=== PATIENT | male | born 1950 | race Caucasian/White ===

== ENCOUNTER 2021-01-29 01:52 | Emergency (ER) | payer OTHER, MEDICARE ==
[2021-01-29] MEDS: Nitroglycerin 0.4 MG Tab.SL SL PRN ×3 (01:55→02:05)
[2021-01-29] MEDS ORDERED: Furosemide 40 MG/4 ML VIAL IVPUSH ONE (01:55)
--- NOTE | 2021-01-29 01:56 | EDM.PDOC ---
ED HPI GENERAL MEDICAL PROBLEM - General Chief Complaint: Respiratory Problem Stated Complaint: CHEST PAIN Time Seen by Provider: 01/29/21 01:54 Source of Information: Reports: Patient History Limitations: Reports: No Limitations - History of Present Illness INITIAL COMMENTS - FREE TEXT/NARRATIVE: Patient is a 70-year-old male who presents today in respiratory distress. Patient states that he cannot lay flat and when he does not be becomes worse. Patient denies any chest pain. Patient denies any increased fluid intake or lower extremity swelling. - Related Data Allergies Allergy/AdvReac Type Severity Reaction Status Date / Time clozapine Allergy Cannot Verified 01/29/21 02:17 Remember mirtazapine Allergy Cannot Verified 01/29/21 02:17 Remember Penicillins Allergy Anaphylactic Verified 01/29/21 02:17 Shock pregabalin Allergy Cannot Verified 01/29/21 02:17 Remember sunflower oil Allergy Anaphylactic Verified 01/29/21 02:17 Shock methadone AdvReac Irritabilit Verified 01/29/21 02:17 y zolpidem AdvReac Hallucinati Verified 01/29/21 02:17 ons Home Meds: Home Meds Allopurinol [Zyloprim] 100 mg PO DAILY 06/18/17 [History] Cholecalciferol (Vitamin D3) [Vitamin D3] 1,000 unit PO DAILY 06/18/17 [History] Dextran 70/Hypromellose [Artificial Tears] 1 drop OP ASDIRECTED 06/18/17 [History] Furosemide [Lasix] 20 mg PO DAILY 06/18/17 [History] Insulin Aspart [NovoLOG] 1 dose SQ TID 06/18/17 [History] Insulin Glarg,Human.Rec.Analog [LantUS Solostar] 44 units SUBCUT BID 06/18/17 [History] Warfarin [Coumadin] 5 mg PO DAILY 06/18/17 [History] Magnesium Oxide 1 tab PO DAILY 08/06/17 [History] Potassium Chloride [Klor-Con] 20 meq PO ASDIRECTED 08/06/17 [History] Past Medical History HEENT History: Reports: Cataract, Other (See Below) Other HEENT History: tooth extraction Cardiovascular History: Reports: CAD, High Cholesterol, Hypertension, Other (See Below) Other Cardiovascular History: chronic anticoagulation, afib, venous insuff Respiratory History: Reports: Sleep Apnea Gastrointestinal History: Reports: GERD Musculoskeletal History: Reports: Back Pain, Chronic, Fibromyalgia Neurological History: Reports: Neuropathy, Diabetic Other Psychiatric History: alchohol, dependence treatment , personality disorder, ptsd, paranoid disorder Endocrine/Metabolic History: Reports: Diabetes, Type I, Obesity/BMI 30+ Other Endocrine/Metabolic History: chronic kidney disease, lymphedema, low testosterone Hematologic History: Reports: Anticoagulation Therapy Dermatologic History: Reports: Cellulitis - Past Surgical History GI Surgical History: Reports: Colonoscopy Other GI Surgeries/Procedures: colon polyps x4 Other Female Surgeries/Procedures: bph, hematuria, kidney stone, testicular dysfunction, cystoscopy, vastectomy Male Surgical History: Reports: Other (See Below) Social & Family History - Caffeine Use Caffeine Use: Reports: Coffee, Soda ED ROS GENERAL - Review of Systems Review Of Systems: Unable To Obtain Reason Not Obtained: Respiratory status ED EXAM, GENERAL - Physical Exam Exam: See Below Exam Limited By: Respiratory Distress General Appearance: Severe Distress Eye Exam: Bilateral Eye: EOMI, PERRL Respiratory/Chest: Respiratory Distress, Decreased Breath Sounds Cardiovascular: Normal Peripheral Pulses, Regular Rate, Rhythm GI/Abdominal: Normal Bowel Sounds, Soft, Non-Tender Extremities: Normal Inspection, Normal Range of Motion Neurological: Alert, Oriented #1 Interpretation EKG Date: 01/29/21 Time: 01:53 Rhythm: Other (v-paced) Rate (Beats/Min): 76 ST-T: Normal Course - Vital Signs Last Recorded V/S: Last Vital Signs Temp 97.4 F 01/29/21 01:52 Pulse 78 01/29/21 03:52 Resp 30 H 01/29/21 03:52 BP 126/66 01/29/21 03:52 Pulse Ox 96 01/29/21 03:52 - Orders/Labs/Meds Orders: Active Orders 24 hr Category Date Time Status BIPAP Adult [RT BiPAP/CPAP] [RC] ASDIRECTED Care 01/29/21 02:03 Active EKG Documentation Completion [RC] STAT Care 01/29/21 01:54 Active Azithromycin [Zithromax] 500 mg Med 01/29/21 03:00 Active Sodium Chloride 0.9% [Normal Saline (AdvBag)] 250 ml IV ONETIME Nitroglycerin/D5W [Nitroglycerin 25 MG/D5W 250 ML] Med 01/29/21 02:30 Active 25 mg in 250 ml IV TITRATE Resuscitation Status Stat Resus Stat 01/29/21 02:21 Ordered Medication Orders Nitroglycerin/Dextrose (Nitroglycerin 25 Mg/D5w 250 Ml) 25 mg in 250 mls @ 3 mls/hr IV TITRATE TIFFANY; Protocol Last Admin: 01/29/21 02:25 Dose: 5 mcg/min, 3 mls/hr Documented by: SALEEM Azithromycin 500 mg/ Sodium (Chloride) 250 mls @ 250 mls/hr IV ONETIME TIFFANY Last Admin: 01/29/21 03:58 Dose: 250 mls/hr Documented by: SALEEM Labs: Laboratory Tests 01/29/21 01/29/21 01/29/21 Range/Units 01:56 01:56 01:56 WBC 17.79 H (4.0-11.0) K/uL RBC 5.68 (4.50-5.90) M/uL Hgb 16.7 (13.0-17.0) g/dL Hct 52.7 H (38.0-50.0) % MCV 92.8 (80.0-98.0) fL MCH 29.4 (27.0-32.0) pg MCHC 31.7 (31.0-37.0) g/dL RDW Std Deviation 51.8 (28.0-62.0) fl RDW Coeff of Marcelo 15 (11.0-15.0) % Plt Count 246 (150-400) K/uL MPV 11.10 (7.40-12.00) fL Neut % (Auto) 66.6 (48.0-80.0) % Lymph % (Auto) 23.8 (16.0-40.0) % [place] % (Auto) 6.3 (0.0-15.0) % Eos % (Auto) 3.0 (0.0-7.0) % Baso % (Auto) 0.3 (0.0-1.5) % Neut # (Auto) 11.9 H (1.4-5.7) K/uL Lymph # (Auto) 4.2 H (0.6-2.4) K/uL [place] # (Auto) 1.1 H (0.0-0.8) K/uL Eos # (Auto) 0.5 (0.0-0.7) K/uL Baso # (Auto) 0.1 (0.0-0.1) K/uL Nucleated RBC % 0.0 /100WBC Nucleated RBCs # 0 K/uL INR APTT (18.6-31.3) SEC Sodium 143 (136-148) mmol/L Potassium 4.8 (3.5-5.1) mmol/L Chloride 106 (98-107) mmol/L Carbon Dioxide 25.8 (21.0-32.0) mmol/L BUN 23 H (7.0-18.0) mg/dL Creatinine 1.6 H (0.8-1.3) mg/dL Est Cr Clr Drug Dosing 49.95 mL/min Estimated GFR (MDRD) 42.9 ml/min Glucose 231 H (74-106) mg/dL Calcium 9.3 (8.5-10.1) mg/dL Magnesium 2.1 (1.8-2.4) mg/dL Total Bilirubin 0.6 (0.2-1.0) mg/dL AST 31 (15-37) IU/L ALT 26 (14-63) IU/L Alkaline Phosphatase 107 (46-116) U/L Creatine Kinase 170 (26-308) U/L Troponin I 0.074 H* (0.000-0.056) ng/mL B-Natriuretic Peptide 374 H (<100) PG/ML Total Protein 8.5 H (6.4-8.2) g/dL Albumin 3.4 (3.4-5.0) g/dL Globulin 5.1 H (2.6-4.0) g/dL Albumin/Globulin Ratio 0.7 L (0.9-1.6) SARS-CoV-2 RNA (NHUNG) (NEGATIVE) 01/29/21 01/29/21 Range/Units 01:56 01:56 WBC (4.0-11.0) K/uL RBC (4.50-5.90) M/uL Hgb (13.0-17.0) g/dL Hct (38.0-50.0) % MCV (80.0-98.0) fL MCH (27.0-32.0) pg MCHC (31.0-37.0) g/dL RDW Std Deviation (28.0-62.0) fl RDW Coeff of Marcelo (11.0-15.0) % Plt Count (150-400) K/uL MPV (7.40-12.00) fL Neut % (Auto) (48.0-80.0) % Lymph % (Auto) (16.0-40.0) % [place] % (Auto) (0.0-15.0) % Eos % (Auto) (0.0-7.0) % Baso % (Auto) (0.0-1.5) % Neut # (Auto) (1.4-5.7) K/uL Lymph # (Auto) (0.6-2.4) K/uL [place] # (Auto) (0.0-0.8) K/uL Eos # (Auto) (0.0-0.7) K/uL Baso # (Auto) (0.0-0.1) K/uL Nucleated RBC % /100WBC Nucleated RBCs # K/uL INR 1.33 APTT 29.4 (18.6-31.3) SEC Sodium (136-148) mmol/L Potassium (3.5-5.1) mmol/L Chloride (98-107) mmol/L Carbon Dioxide (21.0-32.0) mmol/L BUN (7.0-18.0) mg/dL Creatinine (0.8-1.3) mg/dL Est Cr Clr Drug Dosing mL/min Estimated GFR (MDRD) ml/min Glucose (74-106) mg/dL Calcium (8.5-10.1) mg/dL Magnesium (1.8-2.4) mg/dL Total Bilirubin (0.2-1.0) mg/dL AST (15-37) IU/L ALT (14-63) IU/L Alkaline Phosphatase (46-116) U/L Creatine Kinase (26-308) U/L Troponin I (0.000-0.056) ng/mL B-Natriuretic Peptide (<100) PG/ML Total Protein (6.4-8.2) g/dL Albumin (3.4-5.0) g/dL Globulin (2.6-4.0) g/dL Albumin/Globulin Ratio (0.9-1.6) SARS-CoV-2 RNA (NHUNG) NEGATIVE (NEGATIVE) Meds: Medications Generic Name Dose Route Start Last Admin Trade Name Freq PRN Reason Stop Dose Admin Nitroglycerin/Dextrose 25 mg in 250 mls @ 3 mls/hr 01/29/21 02:30 01/29/21 02:25 Nitroglycerin 25 Mg/D5w 250 Ml IV 5 mcg/min TITRATE TIFFANY 3 mls/hr Administration Protocol 5 MCG/MIN Azithromycin 500 mg/ Sodium 250 mls @ 250 mls/hr 01/29/21 03:00 01/29/21 03:58 Chloride IV 250 mls/hr ONETIME TIFFANY Administration Discontinued Medications Generic Name Dose Route Start Last Admin Trade Name Freq PRN Reason Stop Dose Admin Furosemide 40 mg 01/29/21 01:55 01/29/21 01:55 Furosemide 40 Mg/4 Ml Vial IVPUSH 01/29/21 01:56 40 mg NOW ONE Administration Ceftriaxone Sodium/Dextrose 1 50 mls @ 100 mls/hr 01/29/21 02:56 01/29/21 03:58 gm/ Premix IV 01/29/21 03:25 100 mls/hr ONETIME ONE Administration Nitroglycerin 0.4 mg 01/29/21 01:55 01/29/21 02:05 Nitroglycerin 0.4 Mg Tab.Sl SL 0.4 mg Q5M PRN Administration Chest Pain - Re-Assessments/Exams Free Text/Narrative Re-Assessment/Exam: 01/29/21 04:20 Patient was placed on a nitro drip patient seems to be more comfortable respiratory is decreased patient states he feels better as well. Patient will be transferred to [facility] ICU. Patient remains DNI. Departure - Departure Time of Disposition: 04:21 Disposition: DC/Tfer to Other 70 Condition: Good Clinical Impression: CHF (congestive heart failure) - Discharge Information Forms: ED Department Discharge Critical Care Note - Critical Care Note Total Time (mins): 50 Comments: Critical Care Procedure Note Authorized and Performed by: Dr. Johnson Total critical care time: Approximately Due to a high probability of clinically significant, life threatening deterioration, the patient required my highest level of preparedness to intervene emergently and I personally spent this critical care time directly and personally managing the patient. This critical care time included obtaining a history; examining the patient; pulse oximetry; ordering and review of studies; arranging urgent treatment with development of a management plan; evaluation of patient's response to treatment; frequent reassessment; and, discussions with other providers. This critical care time was performed to assess and manage the high probability of imminent, life-threatening deterioration that could result in multi-organ failure. It was exclusive of separately billable procedures and treating other patients and teaching time. Sepsis Event Note (ED) - Focused Exam Vital Signs: Vital Signs Temp Pulse Resp BP BP Pulse Ox 01/29/21 03:52 78 30 H 126/66 96 01/29/21 02:48 71 30 H 131/45 L 93 L 01/29/21 02:33 68 31 H 129/66 92 L 01/29/21 02:05 188/94 H 01/29/21 02:00 206/103 H 01/29/21 01:55 217/111 H 01/29/21 01:52 97.4 F 84 32 H 217/111 H 96 - My Orders Last 24 Hours: My Active Orders 01/29/21 01:54 EKG Documentation Completion [RC] STAT 01/29/21 02:03 BIPAP Adult [RT BiPAP/CPAP] [RC] ASDIRECTED 01/29/21 02:21 Resuscitation Status Stat 01/29/21 02:30 Nitroglycerin/D5W [Nitroglycerin 25 MG/D5W 250 ML] 25 mg in 250 ml IV TITRATE 01/29/21 03:00 Azithromycin [Zithromax] 500 mg Sodium Chloride 0.9% [Normal Saline (AdvBag)] 250 ml IV ONETIME - Assessment/Plan Last 24 Hours: My Active Orders 01/29/21 01:54 EKG Documentation Completion [RC] STAT 01/29/21 02:03 BIPAP Adult [RT BiPAP/CPAP] [RC] ASDIRECTED 01/29/21 02:21 Resuscitation Status Stat 01/29/21 02:30 Nitroglycerin/D5W [Nitroglycerin 25 MG/D5W 250 ML] 25 mg in 250 ml IV TITRATE 01/29/21 03:00 Azithromycin [Zithromax] 500 mg Sodium Chloride 0.9% [Normal Saline (AdvBag)] 250 ml IV ONETIME Plan: Patient is a 70-year-old male who presents today for respiratory distress. Patient likely in CHF preservation. Will provide Lasix nitro and reassess patient.
[2021-01-29] MEDS ORDERED: Nitroglycerin/D5W 25 MG/250 ML BOTTLE IV SCH (02:30)
[2021-01-29 02:34] LABS: CARBON DIOXIDE,CO2 25.8 mmol/L (21.0-32.0); POTASSIUM,K 4.8 mmol/L (3.5-5.1)
--- NOTE | 2021-01-29 02:45 | CR ---
INDICATION: Congestive heart failure shortness of breath TECHNIQUE: Chest radiograph 1 view COMPARISON: None FINDINGS: Severe degradation of image quality noted due to body habitus. Mediastinum: The mediastinum is normal in appearance. The heart silhouette is normal in size and morphology. There is a left cardiac pacer present with leads in the right atrium, coronary sinus, and right ventricle. Lung: Pulmonary vascular congestion with mild interstitial pulmonary edema and bibasilar atelectasis seen. No sign of pleural effusion seen. No pneumothorax is identified. Bone and Soft tissue: Unremarkable for age. IMPRESSION: 1. Pulmonary vascular congestion with mild interstitial pulmonary edema and bibasilar atelectasis seen. Dictated by Giorgi Gandhi MD @ 01/29/2021 2:43:36 AM Dictated by: Giorgi Gandhi MD @ 01/29/2021 02:43:41 (Electronically Signed)
[2021-01-29] MEDS ORDERED: cefTRIAXone 1 GM in Premix Bag 1 BAG IV ONE (02:56)
[2021-01-29] MEDS ORDERED: Azithromycin 500 MG in Sodium Chloride 0.9% 250 ML IV SCH (03:00)
== END 2021-01-29 04:00 | disposition other institution (70) ==
LOC: MW.ED 01:52
DX: I11.0 Hypertensive heart disease with heart failure (principal); I50.9 Heart failure, unspecified; I25.10 Atherosclerotic heart disease of native coronary artery without angina pectoris; E78.00 Pure hypercholesterolemia, unspecified; E10.9 Type 1 diabetes mellitus without complications; E66.9 Obesity, unspecified; Z68.37 Body mass index [BMI] 37.0-37.9, adult; Z88.0 Allergy status to penicillin; Z88.5 Allergy status to narcotic agent; Z88.8 Allergy status to other drugs, medicaments and biological substances; Z79.01 Long term (current) use of anticoagulants; Z20.822 Contact with and (suspected) exposure to COVID-19
CPT/HCPCS: 36415; 51702; 71045; 80053; 82550; 83735; 83880; 84484; 85025; 85610; 85730; 87635; 93005; 94660; 96365; 96366; 96368; 96375; 99285; A9270; J0456; J0696; J1940; J3490; J7050; 99291; U0002